=== PATIENT | male | born 1960 | race Caucasian/White ===

== ENCOUNTER 2018-10-20 06:43 | Emergency (ER) | payer BC, OTHER ==
[2018-10-20 07:21] LABS: Bilirubin Negative (Negative); Blood, Urine Negative (Negative); Clarity CLEAR (Clear); Glucose, Urine (Dipstick) Negative (Negative); Leukocyte Negative (Negative); Nitrite Negative (Negative); Protein, Urine (Dipstick) Negative (Neg-Trace); Urobilinogen 0.2 mg/dL (0.2-1.0); pH, Urine 5.5 (5.0-9.0)
[2018-10-20 07:47] LABS: #Basophils 0.1 thou/uL (0.0-0.2); #Eosinphils 0.2 thou/uL (0.0-0.7); #Lymphocytes 2.6 thou/uL (1.20-3.40); #Monocytes 0.8 thou/uL (0.11-0.59); %Eosinophils 2.6 % (0.0-10.0); %Lymphocytes 29.8 % (21.0-51.0); %Monocytes 8.8 % (0.0-10.0); %Neutrophils 57.8 % (42.0-75.0); Mean Corpuscular HGB CONC 33.5 g/dL (32.0-36.0); Mean Corpuscular Volume 92.5 fL (78.0-98.0); Mean Platelet Volume 8.2 fL (7.4-10.4); Platelet Count 324 thou/uL (130-400); RBC Distribution Width 12.6 % (11.5-14.5); Red Blood Cell (RBC) Count 5.15 mill/uL (4.70-6.10); White Blood Cell (WBC) Count 8.7 thou/uL (4.8-10.8)
[2018-10-20] MEDS ORDERED: Ketorolac Tromethamine 30 MG/ML VIAL ONE (07:49)
[2018-10-20 08:04] LABS: ALT (SGPT) 29 U/L (8-55); AST (SGOT) 20 U/L (5-34); Albumin 4.3 g/dL (3.5-5.0); Alkaline Phosphatase 57 U/L (40-150); Anion Gap 10 mmol/L (10-20); BUN (Urea Nitrogen) 17 mg/dL (8.4-25.7); Bilirubin, Total 0.5 mg/dL (0.2-1.2); Calc. Creatinine Clearance 0 mL/min (70-130); Calcium 9.9 mg/dL (7.8-10.44); Carbon Dioxide 25 mmol/L (22-29); Chloride 108 mmol/L (98-107); Estimated GFR-MDRD 71; Globulin 3.2 g/dL (2.4-3.5); Glucose 91 mg/dL (70-105); Potassium 4.4 mmol/L (3.5-5.1); Protein, Total 7.5 g/dL (6.0-8.3); Sodium 139 mmol/L (136-145)
--- NOTE | 2018-10-20 09:08 | CT ---
CT ABDOMEN AND PELVIS WITHOUT CONTRAST: HISTORY: Right flank pain. FINDINGS: Absence of oral and IV contrast reduce the sensitivity of the exam, particularly for evaluation of so lid organs involved. The lung bases are clear. No free air or free fluid is seen in the abdomen or pelvis. No calcified gallstones are seen. There is a duodenal diverticulum. A normal appearing appendix is present. The re is colonic diverticulosis without evidence of diverticulitis. Vascular calcifications are present without evidence of aneurysmal dilatation of the abdominal aorta. There is a small fat-containing r ight inguinal hernia. Degenerative changes are seen in the spine. No calculi are seen in the kidneys or in the left ureter. There is a punctate calculus at the right ureterovesical junction. No hydronephrosis is seen. IMPRESSION: 1. Punctate calculus at the right ureterovesical junction. No evidence of high-grade obstruction. 2. Colonic diverticulosis. 3. Duodenal diverticulum. POS: OFF
== END 2018-10-20 08:48 | disposition home or self-care (01) ==
LOC: ERS 06:43
DX: N20.0 Calculus of kidney (principal); F32.9 Major depressive disorder, single episode, unspecified
CPT/HCPCS: 74176; 80053; 81003; 85025; 87086; 96374; J1885

== ENCOUNTER 2018-11-17 15:03 | Outpatient (CLI) | payer BC ==
--- NOTE | 2018-11-17 15:55 | RAD ---
RADIOGRAPH CHEST 2 VIEWS: HISTORY: A 58-year-old female with a history of tobacco abuse. FINDINGS: The lungs are clear. The cardiomediastinal silhouette and hilar shadows are normal. There is no ple ural effusion. The osseous structures appear normal. There is no pneumothorax. IMPRESSION: Normal. kate [] POS: DEENA
== END 2018-11-17 15:04 | disposition home or self-care (01) ==
LOC: BICRAD 15:03
PROVIDERS: ATTEND Family Medicine
DX: Z72.0 Tobacco use (principal)
CPT/HCPCS: 71046

== ENCOUNTER 2024-09-22 12:54 | Inpatient (IN) | payer BC, SELFPAY ==
[2024-09-22] MEDS ORDERED: fentaNYL 50 mcg/mL 1 mL Vial ONE ×2 (13:19→21:12)
[2024-09-22] MEDS ORDERED: Ondansetron PF 4 MG/2 ML Vial ONE ×2 (13:19→19:34)
[2024-09-22 13:28] LABS: #Basophils 0.03 10x3/uL (0.0-0.2); #Eosinophils Less than 0.03 10x3/uL (0.0-0.7); %Basophils 0.2 % (0.0-1.0); %Eosinophils 0.1 % (0.0-10.0); %Lymphocytes 7.8 % (21.0-51.0); %Monocytes 11.3 % (0.0-10.0); %Neutrophils 80.3 % (42.0-75.0); Hematocrit 43.8 % (42.0-52.0); Hemoglobin 14.9 g/dL (14.0-18.0); Mean Corpuscular Hemoglobin 30.3 pg (27.0-31.0); Mean Corpuscular Volume 89.2 fL (78.0-98.0); Mean Platelet Volume 10.2 fL (7.4-10.4); Platelet Count 350 10x3/uL (130-400); RBC Distribution Width 13.6 % (11.5-14.5); Red Blood Cell (RBC) Count 4.91 mill/uL (4.70-6.10)
[2024-09-22 13:49] LABS: ALT (SGPT) 28 U/L (8-55); AST (SGOT) 13 U/L (5-34); Albumin 3.6 g/dL (3.4-4.8); Alkaline Phosphatase 49 U/L (40-110); Anion Gap 12 mmol/L (10-20); BUN (Urea Nitrogen) 10 mg/dL (8.4-25.7); Bilirubin, Total 0.7 mg/dL (0.2-1.2); Calc. Creatinine Clearance 0 mL/min (70-130); Calcium 9.5 mg/dL (7.8-10.44); Carbon Dioxide 21 mmol/L (23-31); Chloride 107 mmol/L (98-107); Estimated GFR 97; Globulin 3.7 g/dL (2.4-3.5); Glucose 123 mg/dL (80-115); Lipase 13 U/L (8-78); Protein, Total 7.3 g/dL (5.8-8.1); Sodium 136 mmol/L (136-145)
[2024-09-22] MEDS ORDERED: Morphine 4 MG/ML VIAL ONE (14:22)
[2024-09-22] MEDS ORDERED: Piperacillin/Tazobactam 4.5 GM VIAL ONE (14:25)
[2024-09-22] MEDS ORDERED: Sodium Chloride 0.9% 100 ML ONE (14:26)
[2024-09-22 15:05] LABS: Bilirubin Negative (Negative); Blood, Urine 1+ (Negative); CAUTI Indications for Culture Dysuria,urgency,freq; Clarity Clear (Clear); Glucose, Urine (Dipstick) Normal (Negative); Ketone, Urine 10 mg/dL (Negative); Leukocyte Negative Leu/uL (Negative); Nitrite Negative (Negative); Protein, Urine (Dipstick) 70 mg/dL (Neg-Trace); Specific Gravity, Urine 1.034 (1.002-1.036); Squamous Epithelial None Seen HPF (0-3); Urobilinogen Normal mg/dL (Less than 2); WBC/HPF 0-3 HPF (0-3); pH, Urine 6.5 (5.0-9.0)
[2024-09-22] MEDS ORDERED: Dextrose 5% in Water 1,000 ML IV PRN ×2 (15:05→15:11)
[2024-09-22] MEDS ORDERED: Dextrose 50% Abboject 50 ML SYRINGE SLOW IVP PRN ×2 (15:05→15:11)
[2024-09-22] MEDS ORDERED: Glucagon 1 MG/ML KIT IM PRN ×2 (15:05→15:11)
[2024-09-22] MEDS ORDERED: Acetaminophen 325 MG TAB PO PRN (15:05)
[2024-09-22] MEDS ORDERED: hydrALAZINE 20 MG/ML VIAL SLOW IVP PRN (15:05)
[2024-09-22] MEDS ORDERED: Insulin Lispro 100 UNIT/ML 10 ML VIAL SC PRN (15:05)
[2024-09-22] MEDS ORDERED: Ondansetron PF 4 MG/2 ML Vial IVP PRN (15:05)
[2024-09-22 15:20] LABS: Bacteria/HPF Rare-Few HPF (None Seen)
[2024-09-22 15:22] LABS: Urine Culture Reflex No No
[2024-09-22] MEDS ORDERED: Morphine 2 MG/ML VIAL ONE (16:24)
[2024-09-22] MEDS: Sodium Chloride 0.9% 1,000 ML IV SCH (17:20)
[2024-09-22] MEDS: Piperacillin/Tazobactam 3.375 GM in Sodium Chloride 0.9% 100 ML IVPB SCH (17:58)
[2024-09-22] MEDS: TETANUS, DIPHTHERIA TOX,ADULT (TDVAX) 0.5 ML VIAL IM ONE (17:59)
[2024-09-22] MEDS: Morphine 2 MG/ML VIAL SLOW IVP PRN (18:23)
[2024-09-22] MEDS: Indocyanine Green 25 MG/10 ML VIAL IVP SCH (18:28)
[2024-09-22] MEDS ORDERED: Midazolam HCl 2 mg/2 ml Vial ONE (19:34)
[2024-09-22] MEDS ORDERED: Dexamethasone 20 MG/5 ML VIAL ONE (19:34)
[2024-09-22] MEDS ORDERED: fentaNYL PF 100 MCG/2 ML SYRINGE ONE (19:34)
[2024-09-22] MEDS ORDERED: Rocuronium Bromide 10 MG/ML (10ML VIAL) ONE (19:34)
[2024-09-22] MEDS ORDERED: Lidocaine 1% PF 5 ML VIAL ONE (19:34)
[2024-09-22] MEDS ORDERED: PROPOFOL 20 ML ONE (19:34)
[2024-09-22] MEDS ORDERED: PHENYLEPHRINE-NS 100 MCG/ML 10 ML SYRINGE ONE (19:57)
[2024-09-22] MEDS ORDERED: SUGAMMADEX SODIUM 200 MG/2 ML VIAL ONE (20:57)
[2024-09-22] MEDS ORDERED: ePHEDrine Sulfate 50 MG/10 ML VIAL ONE (21:17)
[2024-09-22] MEDS: Famotidine/PF 20 mg/2ml Vial SLOW IVP SCH (22:32)
[2024-09-23] MEDS: HYDROcodone/Acetaminophen 10/325 mg Tablet PO PRN (02:13)
[2024-09-23 04:50] LABS: #Basophils Less than 0.03 10x3/uL (0.0-0.2); #Eosinophils Less than 0.03 10x3/uL (0.0-0.7); %Basophils 0.1 % (0.0-1.0); %Lymphocytes 2.5 % (21.0-51.0); %Monocytes 6.2 % (0.0-10.0); %Neutrophils 90.6 % (42.0-75.0); Hematocrit 42.4 % (42.0-52.0); Hemoglobin 14.1 g/dL (14.0-18.0); Mean Corpuscular HGB CONC 33.3 g/dL (32.0-36.0); Mean Corpuscular Hemoglobin 30.3 pg (27.0-31.0); Mean Platelet Volume 10.8 fL (7.4-10.4); Platelet Count 337 10x3/uL (130-400); Red Blood Cell (RBC) Count 4.66 mill/uL (4.70-6.10)
[2024-09-23 05:16] LABS: ALT (SGPT) 45 U/L (8-55); AST (SGOT) 21 U/L (5-34); Albumin 3.1 g/dL (3.4-4.8); Alkaline Phosphatase 48 U/L (40-110); Anion Gap 13 mmol/L (10-20); BUN (Urea Nitrogen) 9 mg/dL (8.4-25.7); Bilirubin, Total 0.8 mg/dL (0.2-1.2); Calc. Creatinine Clearance 0 mL/min (70-130); Calcium 9.1 mg/dL (7.8-10.44); Carbon Dioxide 19 mmol/L (23-31); Chloride 107 mmol/L (98-107); Estimated GFR 85; Globulin 3.7 g/dL (2.4-3.5); Glucose 152 mg/dL (80-115); Potassium 4.4 mmol/L (3.5-5.1); Protein, Total 6.8 g/dL (5.8-8.1); Sodium 135 mmol/L (136-145)
[2024-09-23 08:25] VITALS: BP 134/82; TEMP 97.2
== END 2024-09-23 12:19 | disposition home or self-care (01) | DRG 419 ==
LOC: ERS 12:54 → SURG B 15:09
PROVIDERS: ADMIT Surgery; ATTEND Surgery
PROC: 0FT44ZZ Resection of Gallbladder, Percutaneous Endoscopic Approach (ICD-10-PCS; principal; 2024-09-22)
PROC: 8E0W4CZ Robotic Assisted Procedure of Trunk Region, Percutaneous Endoscopic Approach (ICD-10-PCS; 2024-09-22)
DX: K81.0 Acute cholecystitis (principal); K82.A1 Gangrene of gallbladder in cholecystitis; Z91.041 Radiographic dye allergy status; Z91.013 Allergy to seafood; Z79.899 Other long term (current) drug therapy; Z79.1 Long term (current) use of non-steroidal anti-inflammatories (NSAID); F32.A Depression, unspecified
CPT/HCPCS: 36415; 74176; 76705; 80053; 81001; 83605; 83690; 85025; 87428; 88304; A6258; C1713; J1100; J2250; J2272; J2405; J2543; J2704; J3010; J3490; S2900